=== PATIENT | male | born 1985 | race African-American/Black ===

== ENCOUNTER 2018-02-03 10:07 | Emergency (ER) | payer OTHER, MEDICAID ==
[~2018-02-03] VITALS: Ht 177.8 cm; Wt 85.0 kg
[2018-02-03 11:11] VITALS: BP 125/71
== END 2018-02-03 11:11 | disposition home or self-care (01) ==
LOC: ER 10:32
DX: R06.00 Dyspnea, unspecified (principal); F12.10 Cannabis abuse, uncomplicated
CPT/HCPCS: 93005; 99283

== ENCOUNTER 2021-01-06 08:16 | Emergency (ER) | payer OTHER, MEDICAID ==
[~2021-01-06] VITALS: Ht 172.7 cm; Wt 73.0 kg
[2021-01-06 08:17] VITALS: BP 136/70
[2021-01-06] MEDS ORDERED: ACETAMINOPHEN 325MG TABLET PO ONE (09:00)
== END 2021-01-06 09:14 ==
LOC: ER 08:16
DX: F41.0 Panic disorder [episodic paroxysmal anxiety] (principal); F12.10 Cannabis abuse, uncomplicated
CPT/HCPCS: 71045; 99283